=== PATIENT | female | born 1975 | race Caucasian/White ===

== ENCOUNTER → 2017-04-11 | Outpatient (CLI) | payer OTHER ==
[2015-02-01 12:48] VITALS: BP 120/70
[~2017-04-11] MED LIST: HYDR-2758 PO; MELO15TA23 PO; MOME13HF IH; PROAIR HFA8.5 GM IH; SUMA50TA4 PO; TIZA4TAB PO
--- NOTE | 2017-04-11 16:40 | KCIC ---
Two-view calcaneus HISTORY: Heel pain for 2 months. COMPARISON: None FINDINGS: Small plantar calcaneal spur. No evidence of an acute fracture. Visualized joints appear grossly intact IMPRESSION: Small plantar calcaneal spur. Electronically signed by: Talib Louis MD (04/11/2017 4:36 PM)
== END | disposition home or self-care (01) ==
LOC: KCIC 15:56
PROVIDERS: ATTEND Family Medicine
DX: M77.32 Calcaneal spur, left foot (principal)
CPT/HCPCS: 73650

== ENCOUNTER → 2017-10-02 | Outpatient (CLI) | payer OTHER ==
[2015-02-01 12:48] VITALS: BP 120/70
--- NOTE | 2017-10-02 14:08 | KCIC ---
Indication: Neck pain. Time of exam 12:15 PM Multiple views of the cervical spine were obtained. Curvature is normal. There is minimal anterolisthesis of C4 on C5. The disc spaces are well-maintained. The prevertebral tissues are normal. The odontoid is intact. No fractures are seen. IMPRESSION: Minimal anterolisthesis of C4 on C5. The study is otherwise unremarkable. Electronically signed by: Bryan Em MD (10/02/2017 2:05 PM) [id number]
== END | disposition home or self-care (01) ==
LOC: KCIC 11:51
PROVIDERS: ATTEND Internal Medicine
DX: M54.2 Cervicalgia (principal)
CPT/HCPCS: 72050

== ENCOUNTER → 2018-02-14 | Outpatient (CLI) | payer OTHER | END | disposition home or self-care (01) | LOC: KCIC 12:21 | DX: M25.562 Pain in left knee (principal); Z91.81 History of falling | CPT/HCPCS: 73560 ==

== ENCOUNTER → 2018-03-06 | Outpatient (CLI) | payer OTHER | END | disposition home or self-care (01) | LOC: KCIC US 12:34 | DX: E04.1 Nontoxic single thyroid nodule (principal) | CPT/HCPCS: 76536 ==

== ENCOUNTER → 2018-04-06 | Outpatient (CLI) | payer OTHER | END | disposition home or self-care (01) | LOC: KCIC 12:20 | DX: M54.5 Low back pain (principal); M79.604 Pain in right leg; M79.605 Pain in left leg; G89.29 Other chronic pain | CPT/HCPCS: 72110 ==

== ENCOUNTER 2018-05-28 18:38 | Emergency (ER) | payer OTHER ==
[2018-05-28] MEDS: IV NORMAL SALINE 1000ML BAG 1,000 ML IV (19:36)
[2018-05-28] MEDS: PROCHLORPERAZINE 10 MG/2 ML VIAL. IV (19:37)
[2018-05-28] MEDS: KETOROLAC 30 MG/ML INJ. IV (19:38)
[2018-05-28] MEDS: diphenhydrAMINE 50 MG/ML VIAL IVP (19:44)
[2018-05-28] MEDS ORDERED: MORPHINE SULFATE 4 MG/ML DISP.SYRIN. IV (20:30)
== END 2018-05-28 21:13 | disposition home or self-care (01) ==
LOC: ER 18:38
DX: G43.909 Migraine, unspecified, not intractable, without status migrainosus (principal); J45.909 Unspecified asthma, uncomplicated; G89.29 Other chronic pain; F17.210 Nicotine dependence, cigarettes, uncomplicated; Z88.0 Allergy status to penicillin
CPT/HCPCS: 96361; 96374; 96375; 99284; J0780; J1200; J1885; J7030

== ENCOUNTER → 2019-03-21 | Outpatient (CLI) | payer OTHER ==
[2018-05-28 21:09] VITALS: BP 111/65
[~2019-03-21] MED LIST changes: +ALBU2.5V8 IH; -HYDR-2758 PO; +HYDR-2761 PO; -PROAIR HFA8.5 GM IH
--- NOTE | 2019-03-21 16:18 | KCIC ---
THYROID ULTRASOUND History: Thyroid nodule Comparison: March 06, 2018 Findings: Multiple sonographic images of the thyroid gland are submitted. Right lobe measured 4.7 x 1.5 x 1.7 cm. Left lobe measured 4.2 x 1.3 x 1.3 cm. There is again solid heterogeneous nodule with internal vascularity of the inferior right gland about 1.1 x 0.8 x 0.7 cm overall similar (previously 1 x 0.6 x 1 cm). There is a hypoechoic small avascular lesion likely solid nodule of the inferior left gland about 0.3 x 0.3 x 0.3 cm overall unchanged in size. Isthmus measured 0.3 cm in thickness. There is heterogeneity of the thyroid parenchyma bilaterally. Impression: 1. There are stable bilateral thyroid nodules, dominant nodule of the inferior right gland. Electronically signed by: Mino Sharma MD (03/21/2019 4:16 PM) [facility]
== END | disposition home or self-care (01) ==
LOC: KCIC US 14:30
PROVIDERS: ATTEND Internal Medicine Endocrinology, Diabetes & Metabolism
DX: E04.2 Nontoxic multinodular goiter (principal)
CPT/HCPCS: 76536

== ENCOUNTER → 2019-05-13 | Outpatient (CLI) | payer OTHER ==
[2018-05-28 21:09] VITALS: BP 111/65
--- NOTE | 2019-05-13 14:18 | KCIC ---
Indication: Chronic back pain and back pain TECHNIQUE: Multiple views of the cervical spine and multiple views of the lumbar spine COMPARISON: None FINDINGS: Cervical spine: Cervical spine is in normal anatomic alignment. Atlantoaxial joint or is preserved. No compression deformities. Facet joints are in normal anatomic alignment. No significant intervertebral disc space narrowing. Prevertebral soft tissues are within normal limits. Visualized lungs are clear. Lumbar spine: There are 5 lumbar type vertebral bodies. No compression deformities. Significant intervertebral disc space narrowing seen at L4-L5 and L5-S1 with endplate sclerosis. Facet joints are in normal anatomic alignment. No change in alignment on flexion and extension views. No significant facet arthropathy. SI joints are within normal limits. IUD noted. IMPRESSION: Degenerative disc disease at L4-L5 and L5-S1. Electronically signed by: Salomón Bustillo DO (05/13/2019 2:15 PM) [facility]
== END | disposition home or self-care (01) ==
LOC: KCIC 11:57
PROVIDERS: ATTEND Family Medicine
DX: M51.37 Other intervertebral disc degeneration, lumbosacral region (principal); M48.07 Spinal stenosis, lumbosacral region; G89.29 Other chronic pain
CPT/HCPCS: 72040; 72114

== ENCOUNTER → 2019-05-22 | Outpatient (CLI) | payer OTHER ==
[2018-05-28 21:09] VITALS: BP 111/65
--- NOTE | 2019-05-22 16:48 | KCIC ---
Bilateral digital screening mammograms: Reason for examination: Routine baseline screening. Interpretation was made with the benefit of CAD. The skin and nipples show no abnormalities. No abnormal axillary lymph nodes are seen. The breast parenchyma shows scattered fibroglandular density. (Breast density: Category B.) There are small nodular parenchymal densities at the 10:00 position 5 cm from the nipple and 6:00 position 3.5 cm from the nipple of the right breast and the 9:00 position 3 cm from the nipple of the left breast. Recommend further evaluation with ultrasound. There are no other dominant masses, suspicious calcifications or architectural distortions. Impression: Small nodular densities seen bilaterally. Recommend further evaluation with ultrasound. BI-RADS Category 0: Incomplete. Needs additional imaging evaluation. "Our facility is accredited by the [employer] Mammography Program." This patient's information has been entered into a reminder system for the patient to be notified with the results of her examination and a target date for the next mammogram. Electronically signed by: Isha Abdi MD (05/22/2019 4:45 PM) [id number]
== END | disposition home or self-care (01) ==
LOC: KCIC MAMMO 09:56
PROVIDERS: ATTEND Family Medicine
DX: Z12.31 Encounter for screening mammogram for malignant neoplasm of breast (principal); N64.89 Other specified disorders of breast
CPT/HCPCS: 77067

== ENCOUNTER → 2019-05-31 | Outpatient (CLI) | payer OTHER ==
[2018-05-28 21:09] VITALS: BP 111/65
[~2019-05-31] MED LIST changes: -TIZA4TAB PO; +TIZA4TAB2 PO
--- NOTE | 2019-05-31 11:24 | KCIC ---
Bilateral breast ultrasound: Reason for examination: Parenchymal densities bilaterally on screening mammogram. Comparison is made to mammographic exam dated 05/22/2019. Ultrasound examination was performed in the areas of mammographic concern and at the axilla. In the right breast, there are no focal nodules but there are some very minimal fibrocystic changes. No abnormal appearing lymph nodes are seen in the axilla. In the left breast at the 9:30 position 3 cm from the nipple, there is a small nodule with lobulated and irregular margination which measures 7.9 mm in greatest dimension. Further evaluation with ultrasound-guided biopsy is recommended. No other cystic or solid nodules are seen. No abnormal appearing lymph nodes are seen axilla. IMPRESSION: 7.9 mm nodule at the 9:30 position 3 cm from the nipple in the left breast. Recommend further evaluation with ultrasound-guided biopsy. BI-RADS Category 4: Suspicious. These findings have been discussed with the patient and a nurse, Ferdi, in the office of the nurse practitioner, Elvira Dalton, was notified about these findings at 11:20 AM on 05/31/2019. "Our facility is accredited by the [employer] Mammography Program." Electronically signed by: Isha Abdi MD (05/31/2019 11:21 AM) [id number]
== END | disposition home or self-care (01) ==
LOC: KCIC US 09:55
PROVIDERS: ATTEND Nurse Practitioner Family
DX: N63.22 Unspecified lump in the left breast, upper inner quadrant (principal)
CPT/HCPCS: 76641

== ENCOUNTER → 2019-06-26 | Outpatient (CLI) | payer OTHER ==
[2018-05-28 21:09] VITALS: BP 111/65
--- NOTE | 2019-06-26 10:39 | RAD ---
Examination: US GUID NDL PLACE/ASPI/BX, DIGITAL DIAGNOSTIC LT History: Left breast mass biopsy Comparison/Correlation: None Findings: Risks and benefits of ultrasound-guided core biopsy were discussed with patient and informed consent was obtained. Preliminary ultrasound imaging was performed to localize the lesion of interest. Medial approach was utilized. Cleansing with alcohol based solution was performed. Sterile drape was placed. Sterile probe cover and sterile gel were utilized. A partially 5 cc 1 percent lidocaine was administered. Small scalpel incision was made. An introducer was placed. A 12-gauge core biopsy needle was placed via the introducer. A total of 6 passes were made. Most of the passes were made with the bevel open. A single pass was made with the bevel closed. Specimens were placed in a formalin jar. Biopsy clip marker was placed via the introducer the conclusion of the exam. MLO and CC images of the left breast were obtained after the ultrasound-guided biopsy. Clip marker is noted along the medial margin of the mass of interest. The patient did report mild chest pain at the conclusion of the biopsy but reportedly felt better after the mammographic exam was performed. No immediate complications noted. Impression: Successful ultrasound-guided biopsy of the left breast mass. Electronically signed by: Teofilo Romero MD (06/26/2019 10:36 AM) [facility]
--- NOTE | 2019-06-28 08:45 | PATHOLOGY ---
[facility] Accession Number: [id number] . 01 Material submitted: . breast - LEFT BREAST MASS 9:30 3CMFN 0.8CM. Modifiers: left . 01 Clinical history: . Left breast mass, 930, 3 cm from nipple, 0.8 cm . 02 Diagnosis: Breast tissue, left breast mass at 9:30 needle biopsies: - Papillary lesion with focal sclerosing adenosis. See comment. - Stromal fibrosis, periductal sclerosis, duct ectasia, and chronic inflammation, focal. . (JPM:mml; 06/27/2019) [facility]/06/28/2019 . 02 Comment: Sections of the left breast mass at 9:30 needle biopsy reveal a papillary lesion with focal sclerosing adenosis. The papillary lesion shows a few calcifications. The remaining breast tissue shows focal stromal fibrosis, periductal sclerosis, duct ectasia, and focal chronic inflammation. We favor a diagnosis of intraductal papilloma with sclerosing adenosis. As this represents a needle biopsy of a larger lesion, we cannot be certain that the changes are uniform throughout the lesion. Correlate clinically. . (JPM:mml; 06/27/2019) . 02 Electronically signed: . Raul Olivarez MD, Pathologist NPI- [id number] . 01 Gross description: . The specimen is received in formalin, labeled "Zita Ramirez, left breast mass, 9:30, 3 cm from nipple", are four fibrofatty cores measuring 1.1 x 0.5 x 0.2 cm in aggregate. The specimen is entirely submitted in A1-A3. Specimen excised at: 0900 on 06/26/19, placed in formalin at: 0905 on 06/26/19, formalin exposure: Approximately 13 hours and 35 minutes. (SWS; 06/26/2019) SHS/SHS . 02 Pathologist provided ICD-10: N60.22, N60.32, N60.42, N61.0 . 02 CPT . 028202 Specimen Comment: A courtesy copy of this report has been sent to Specimen Comment: [phone], , . Specimen Comment: Report sent to , and Performed at: 01 [facility] [address] [facility] [address], [place] [id number] MD Vasile Kelly MD Phone: [phone] Performed at: 02 [facility] [address] [place] [id number] MD Raul Olivarez MD Phone: [phone]
== END ==
LOC: US 08:06
PROVIDERS: ATTEND Surgery
DX: N60.22 Fibroadenosis of left breast (principal); N60.32 Fibrosclerosis of left breast
CPT/HCPCS: 19083; 77065; 88305; C1713; 19081; 76942

== ENCOUNTER → 2020-01-08 | Outpatient (CLI) | payer OTHER ==
[2018-05-28 21:09] VITALS: BP 111/65
--- NOTE | 2020-01-09 17:21 | RAD ---
Examination: DIGITAL DIAGNOSTIC LT, BREAST LEFT History: Left breast papilloma. Six-month biopsy follow-up. Comparison/Correlation: 05/22/2019 mammographic exam, bilateral breast ultrasound 05/31/2019 TECHNIQUE: Full-field digital diagnostic mammographic examination was performed. Computer aided detection software was utilized. BREAST PARENCHYMAL DENSITY: B-scattered fibroglandular densities are present. FINDINGS: Biopsy clip marker is present in the left retroareolar region anteriorly. No mass, suspicious calcifications, or suspicious distortion in the interval. Ultrasound imaging of the left breast is unremarkable with no suspicious mass identified at the 9:30 region. There is severe lesion which may correspond with the finding on prior ultrasound exam and measures 0.5 cm x 0.8 cm x 0.4 cm tall. No flow. No suspicious finding. IMPRESSION: Stable. RECOMMENDATION: BI-RADS Category 3-probably benign. Six-month follow-up mammographic examination at the time of annual evaluation is recommended. Ultrasound may be needed at that time. PQRS compliance statement - Patient information was entered into a reminder system with a target due date for the next mammogram. "Our facility is accreditied by the [employer] Mammography Program." Electronically signed by: Teofilo Romero MD (01/09/2020 5:17 PM) [email or web address]
== END | disposition home or self-care (01) ==
LOC: MAMMO 14:24
PROVIDERS: ATTEND Family Medicine
DX: D24.2 Benign neoplasm of left breast (principal)
CPT/HCPCS: 76641; 77065

== ENCOUNTER → 2020-07-22 | Outpatient (CLI) | payer OTHER ==
[2018-05-28 21:09] VITALS: BP 111/65
--- NOTE | 2020-07-22 10:51 | KCIC ---
Bilateral diagnostic digital mammograms with 3-D tomosynthesis: Reason for examination: Left breast papilloma. 12 month biopsy follow-up. Comparison is made to previous studies dated back to 05/22/2019. Bilateral mammograms in CC and oblique projections were obtained with 2-D imaging and 3-D tomosynthesis imaging on a Siemens Inspiration unit and reviewed on the workstation. Interpretation was made with the benefit of CAD. The skin and nipples show no abnormalities. No abnormal axillary lymph nodes are seen. The breast parenchyma shows scattered fatty and fibroglandular density. (Breast density: Category B.) There continues to be some nodularity in the anterior 9:30 position with adjacent biopsy clip which is stable. There is however a new nodular parenchymal density in the right breast at approximately the 5:00 position 6 cm from the nipple measuring 5 mm in size. Further evaluation with ultrasound follow. There are no other new dominant masses, suspicious calcifications or architectural distortion. Impression: Continued presence of some nodular parenchymal density in the 9:30 position of the left breast anteriorly with adjacent biopsy clip. New 5 mm nodule at the 5:00 position of the right breast. Ultrasound to follow. BI-RADS Category 0: Incomplete. Needs additional imaging evaluation. Bilateral breast ultrasound: Ultrasound examination was performed bilaterally in the areas of mammographic concern and at the axilla. In the right breast at the 5:00 position 6 cm from the nipple, there is a small 3.5 mm hypoechoic fibrocystic type nodule in parallel orientation. No other cystic or solid lesions are seen. There is some ductal ectasia in the retroareolar position. No abnormal appearing lymph nodes are seen in the right axilla. In the left breast at the 9:30 position 3 cm from the nipple, there continues to be a hypoechoic 8.6 mm nodule corresponding to the previous site of biopsy which is stable. There is also some ductal ectasia in the retroareolar position. No abnormal appearing lymph nodes are seen in the left axilla. IMPRESSION: Small 3.5 mm hypoechoic fibrocystic type nodule at the 5:00 position of the right breast. Recommend 6 month follow-up with ultrasound. Stable 8.6 mm nodule in the 9:30 position of the left breast corresponding to site of previous biopsy. BI-RADS Category 3: Probably benign. "Our facility is accredited by the [employer] Mammography [employer]." This patient's information has been entered into a reminder system for the patient to be notified with the results of her examination and a target date for the next mammogram. Electronically signed by: Isha Abdi MD (07/22/2020 10:48 AM) [email or web address]
== END | disposition home or self-care (01) ==
LOC: KCIC MAMMO 08:57
PROVIDERS: ATTEND Surgery
DX: R92.2 Inconclusive mammogram (principal); N63.22 Unspecified lump in the left breast, upper inner quadrant; N63.14 Unspecified lump in the right breast, lower inner quadrant
CPT/HCPCS: 76641; 77066; G0279; 77062

== ENCOUNTER → 2020-08-13 | Outpatient (CLI) | payer OTHER ==
[2018-05-28 21:09] VITALS: BP 111/65
[~2020-08-13] MED LIST changes: +ACET500T68 PO; +BUDE10.22 IH; +CHOL500050 PO; +GABA300C18 PO; +HYDR-3164 PO; +LURA40TA PO; +MONT10TA7 PO; +TOPI100T8 PO
== END ==
LOC: LAB 15:15
PROVIDERS: ATTEND Surgery
DX: Z01.812 Encounter for preprocedural laboratory examination (principal); Z20.828 Contact with and (suspected) exposure to other viral communicable diseases; N63.0 Unspecified lump in unspecified breast
CPT/HCPCS: U0003-CS

== ENCOUNTER 2020-08-17 06:43 | Day surgery (SDC) | payer OTHER ==
[~2020-08-17] VITALS: Ht 162.6 cm; Wt 66.0 kg
[~2020-08-17 06:43] MED LIST changes: -HYDR-3164 PO
[2020-08-17] MEDS ORDERED: fentaNYL PF VIAL 100 MCG/2 ML VIAL IV PRN ×2 (07:00)
[2020-08-17] MEDS ORDERED: PROCHLORPERAZINE 10 MG/2 ML VIAL. IV PRN (07:00)
[2020-08-17] MEDS ORDERED: IV RINGERS,LACTATED 1000ML 1,000 ML IV SCH (07:00)
[2020-08-17] MEDS ORDERED: LIDOCAINE 1% PF 2 ML VIAL. ID PRN (07:00)
[2020-08-17] MEDS ORDERED: HYDROmorphone 2 MG/ML VIAL IV PRN (07:00)
[2020-08-17] MEDS ORDERED: ONDANSETRON PF 4 MG/2 ML VIAL. IV PRN (07:00)
[2020-08-17] MEDS ORDERED: MORPHINE SULFATE 2 MG/ML VIAL. IV PRN (07:00)
[2020-08-17] MEDS ORDERED: LIDOCAINE 1%/EPI 1:100,000 20 ML VIAL. ONE (07:53)
[2020-08-17] MEDS ORDERED: DEXAMETHASONE SOD PHOS 4 MG/ML VIAL ONE (08:24)
[2020-08-17] MEDS ORDERED: PROPOFOL 10 MG/ML (20ML) VIAL. IV ONE (08:25)
[2020-08-17] MEDS ORDERED: LIDOCAINE 2% PF 5 ML VIAL. ONE (08:25)
[2020-08-17] MEDS ORDERED: fentaNYL PF VIAL 100 MCG/2 ML VIAL ONE (08:25)
[2020-08-17] MEDS ORDERED: ONDANSETRON PF 4 MG/2 ML VIAL. ONE (08:25)
[2020-08-17] MEDS ORDERED: BUPIVACAINE-EPI 0.5%-1:200000 MPF 30 ML VIAL. INJ ONE (09:30)
[2020-08-17] MEDS ORDERED: MIDAZOLAM HCL/PF 2 MG/2 ML VIAL. ONE (10:15)
--- NOTE | 2020-08-17 10:32 | RAD ---
EXAMINATION: DIGITAL DIAGNOSTIC LT, US GUID NDL PLACE/ASPI/BX, 08/17/2020 10:00 AM CLINICAL INDICATION: Wire localization left breast mass COMPARISON: Left breast mammogram and ultrasound 07/22/2020 FINDINGS/TECHNIQUE: The risks and benefits of the procedure were explained to the patient and written informed consent was obtained. A timeout was performed. Preprocedural ultrasound revealed the 8 mm hypoechoic lesion at 11:00, 3 cm from the nipple in the left breast. The biopsy clip could be seen in the lesion. On prior exams, the lesion was labeled at 9:30, which may be due to differences in patient positioning during prior ultrasounds. Location was confirmed by repeat mammogram with a marker overlying the ultrasound abnormality at 11:00. The skin overlying the patient's left breast mass was marked with a pen and then sterilely prepped and draped. 1% lidocaine was used for local anesthesia. A small skin indira was made with a scalpel. A 10 cm wire localization needle was then advanced into the mass under ultrasound guidance and wires deployed 1 cm beyond the mass. The needle was removed over the wire. The wire was secured to the skin and the patient was sent for post placement mammogram. Postplacement mammogram demonstrates that the tip of the wire is actually at the distal edge of the mass. The thickened portion of the wire ends approximately 6 mm superficial to the mass. The wire is positioned along the posterior edge of the mass, with the anterior edge of the mass 5 mm anterior to the wire. The cyrus of the wire is oriented posteriorly. The clip is located along the anterior distal edge of the mass. IMPRESSION: Technically successful ultrasound-guided wire localization of left breast mass with appropriate position of wire. Positioning was discussed by Dr. Debra Farrell at 10:15 AM on 08/17/2020. Electronically signed by: Angela Richardson MD (08/17/2020 10:29 AM) [email or web address]
[2020-08-17] MEDS ORDERED: KETOROLAC 30 MG/ML VIAL. ONE (10:59)
[2020-08-17] MEDS ORDERED: SEVOFLURANE 31 TO 60 MINUTES. IH ONE (10:59)
--- NOTE | 2020-08-17 12:10 | DISCH ---
DISCHARGE INSTRUCTIONS Condition on Discharge Condition on Discharge: Stable Activity After Discharge Activity Instructions for Disc: Activity as tolerated Diet after Discharge Diet after Discharge: Regular Wound Incision Care Wound/Incision Care: Other, see below (keep dressing clean and dry X 72 hours, may then remove and shower) Follow-Up Follow up with: Dr Hsieh in 2 weeks, call for appointment [phone] CHUCK HSIEH MD Aug 17, 2020 12:10
[2020-08-17] MEDS ORDERED: HYDR-3164 PO (12:14)
--- NOTE | 2020-08-17 12:16 | PDOC4 ---
Operative Note Operative Note Operative Note: Preoperative Diagnosis: Left breast papilloma Postoperative Diagnosis: Same Procedure: Needle localization left breast biopsy Surgeon: Storm Anesthesia: General EBL: 20 mL Specimen: Left breast specimen to pathology, additional anterior margin Drains: None Complications: None Indication: The patient is a 45-year-old female who had a prior core needle biopsy of her left breast indicating a suspected papilloma. I discussed with her various options including a wider surgical excision versus close observation. During our discussion she seems to prefer full excision to allow for definitive diagnosis. The risks of surgery were discussed which include bleeding, infection, pain, scar tissue, anesthetic risk, potential need for additional surgery procedure. She understands and would like to proceed. Description: The patient was taken initially to radiology where she underwent wire localization of the left breast lesion. She was then taken to the operating room and placed supine in the operating table. General anesthesia was performed. The left breast was prepped with ChloraPrep and draped in a standard surgical manner. A curved incision was made extending from the 1 to 3 o'clock position of the periareolar skin. Sharp dissection was used in the breast parenchyma. The wire was identified and delivered into the wound. With sharp dissection we followed the trajectory of the wire to its termination. A generous portion of the breast tissue was excised around the wire and its distal tip. The specimen and wire were then fully excised and sent to radiology. Specimen radiographs did not clearly identify the clip to be present. An additional rim of anterior tissue was then also excised. Radiographs again did not clearly identify the clip in the specimen. The C-arm was then brought into the operating room and the left breast was evaluated. We were unable to see any metallic foreign body or clip of the left breast using the C arm. Given the absence of the clip using fluoro, we elected to conclude the procedure. Hemostasis was readily achieved with cautery. The subcutaneous tissue was closed with interrupted 3-0 Vicryl and skin approximated with 4-0 Monocryl. The wound was infiltrated with half percent Marcaine with epinephrine. Steri-Strips and a sterile dressing were then applied. The patient tolerated the procedure well and was sent to the recovery room in stable condition. At the end of the case all counts were correct. CHUCK HSIEH MD Aug 17, 2020 12:16
[2020-08-17] MEDS ORDERED: HYDROcodone/APAP 5/325MG 1 TAB TABLET ONE (12:37)
[2020-08-17 12:45] VITALS: BP 98/69
[2020-08-17] MEDS ORDERED: HYDROcodone/APAP 5/325MG 1 TAB TABLET PO ONE (12:45)
--- NOTE | 2020-08-17 16:14 | RAD ---
EXAM: TISSUE SPECIMEN MAMMOGRAM 08/17/2020 12:00 AM CLINICAL INDICATION: 45-year-old woman undergoing excision of left breast papilloma. OR specimen. COMPARISON:Left breast mammogram 06/26/2019 TECHNIQUE:Mammogram of OR specimen was obtained FINDINGS:The first specimen contains the entire distal tip of the wire. The mass is difficult to visualize. The biopsy clip is not definitively seen, possibly superimposed on the wire. There appears to be adequate size of tissue sample that the clip and the mass should be within the specimen. This was discussed with Dr. Inman. Additional tissue was removed. The second specimen also does not definitively contain the biopsy clip. IMPRESSION:OR specimen mammogram containing the entire distal tip of the wire. The biopsy clip is not definitively seen, possibly superimposed on the wire. This was discussed with Dr. Inman intraoperatively, as above. Electronically signed by: Angela Richardson MD (08/17/2020 4:12 PM) [email or web address]
--- NOTE | 2020-08-20 09:11 | PATHOLOGY ---
[facility] Accession Number: [id number] . 01 Material submitted: . PART A: breast - LEFT BREAST NODULE. Modifiers: left PART B: breast - LEFT BREAST ANTERIOR MARGIN. Modifiers: left, anterior . 01 Clinical history: . LEFT BREAST NODULE . 02 Diagnosis: A. Breast tissue, left breast wire-localized excisional biopsy: Fibrocystic changes with the following components: - Stromal fibrosis. - Duct ectasia. - Cystic change. - Apocrine metaplasia. - See comment. . B. Breast tissue, left breast anterior margin: Fibrocystic changes with the following components: - Stromal fibrosis. - Duct ectasia. - Cystic change. - Apocrine metaplasia, focal. (JPM:meche; 08/19/2020) S 08/19/2020 1010 Local . 02 Comment: Sections of the wire-localized left breast excisional biopsy reveal breast tissue with a prominent fatty component. The entire specimen is submitted for histologic evaluation. There are fibrocystic changes comprised of scattered foci of stromal fibrosis, duct ectasia, cystic change, and apocrine metaplasia. In section A5, there is a small cluster of crowded small tubules with little accompanying fibrous stroma, which are lined by bland cuboidal epithelial cells. Immunoperoxidase stains for myoepithelial cells are obtained and yield the following results: . P63 (A5): Presence of myoepithelial cells within crowded tubules Smooth muscle myosin heavy chain (A5): Presence of myoepithelial cells within crowded tubules. . The findings are compatible with a small focus of benign breast acini. I do not identify previous biopsy site changes in the biopsy. No papillary lesion is identified. . Sections of the left breast anterior margin also reveal breast tissue having a prominent fatty component. There are fibrocystic changes once again comprised of scattered foci of stromal fibrosis, duct ectasia, cystic change, and focal apocrine metaplasia. Previous biopsy site changes are not identified. There is no papillary lesion identified. (JPM:meche; 08/19/2020) . Special stains performed: Immunoperoxidase stains for p63, smooth muscle myosin heavy chain on A5. . 02 Electronically signed: . Raul Olivarez MD, Pathologist NPI- [id number] . 01 Gross description: . A. The specimen is received in formalin, labeled "Zita Dority, left breast nodule". Received is a 7 g unoriented segment of bright yellow fibroadipose tissue, with a localization wire present, measuring 4.5 x 3.0 x 1.0 cm in greatest dimensions. The surgical margin is inked. The specimen is sectioned into 13 pieces to reveal bright yellow, lobulated cut surfaces throughout. The end of the localization wire was identified in slice 5. No distinct nodules or lesions are noted grossly. The specimen is submitted entirely in cassettes A1 through A9. The cold ischemic time and time in formalin are not provided. The time out of formalin is 6:50 p.m. on 08/18/2020. . B. The specimen is received in formalin, labeled "Zita Dority, left breast anterior margin". Received is a 4 g unoriented segment of bright yellow, lobulated to white, fibrous tissue measuring 3.8 x 3.3 x 0.6 cm in greatest dimensions. The surgical margin is inked. The specimen is sectioned into 9 slices to reveal bright yellow, lobulated to white, fibrous cut surfaces throughout. No distinct nodules or lesions are noted grossly. The specimen is submitted entirely in cassettes B1 through B8, with the sections in cassettes B2 through B6 additionally bisected. The cold ischemic time and time in formalin are not provided. The time out of formalin is 6:50 p.m. on 08/18/2020. (CAA; 08/17/2020) QAC/QAC 08/17/2020 1851 Local . 02 Pathologist provided ICD-10: N60.12, N60.32, N60.42, N60.82 . 02 CPT . 692049, 104124, V64712, X64218 Specimen Comment: A courtesy copy of this report has been sent to [phone], [phone] Specimen Comment: [phone] Specimen Comment: Report sent to / DR NYE Performed at: 01 [facility] [address] [facility] [address], [place], [place] [id number] MD Vasile Kelly MD Phone: [phone] Performed at: 02 [facility] [address], [place] [id number] MD Raul Olivarez MD Phone: [phone]
== END 2020-08-17 13:23 | disposition home or self-care (01) ==
LOC: SURG 06:43
PROVIDERS: ATTEND Surgery
DX: D24.2 Benign neoplasm of left breast (principal); N60.12 Diffuse cystic mastopathy of left breast; N60.42 Mammary duct ectasia of left breast; N60.82 Other benign mammary dysplasias of left breast; F17.210 Nicotine dependence, cigarettes, uncomplicated; Z88.0 Allergy status to penicillin; Z79.899 Other long term (current) drug therapy
CPT/HCPCS: 19083; 19281; 76000; 76098; 77065; 81025; A7015; J1100; J1885; J1956; J2250; J2405; J2704; J3010; 76942; J3490

== ENCOUNTER → 2020-12-11 | Outpatient (CLI) | payer OTHER ==
[~2020-12-11] MED LIST changes: +HYDR-3164 PO
--- NOTE | 2020-12-11 14:41 | KCIC ---
XR LUMBAR SPINE 4+V DATE: 12/11/2020 11:36 AM INDICATION: Lumbar pain a couple of weeks, denies radiculopathy COMPARISON: None. FINDINGS: Five non-rib bearing lumbar-type vertebral bodies are present. Bones/Alignment: No evidence of acute compression fracture. There is no listhesis. Joints: Moderate degenerative disc disease at L4-5, mild at L5-S1. Miscellaneous: IUD overlying the pelvis. IMPRESSION: No evidence of acute compression fracture. Degenerative disc disease, worst and moderate at L4-5. Electronically signed by: Mino Coronel MD (12/11/2020 2:39 PM) [id number]
== END ==
LOC: KCIC 11:33
PROVIDERS: ATTEND Nurse Practitioner Family
DX: M51.37 Other intervertebral disc degeneration, lumbosacral region (principal); Z97.5 Presence of (intrauterine) contraceptive device
CPT/HCPCS: 72110

== ENCOUNTER → 2021-01-25 | Outpatient (CLI) | payer OTHER ==
--- NOTE | 2021-01-26 07:22 | KCIC ---
XR KNEE _3 VIEWS_LT 01/25/2021 2:01 PM INDICATION: Left knee pain status post fall COMPARISON: None available. TECHNIQUE: 3 views the left knee are provided. FINDINGS/ IMPRESSION: No significant knee joint effusion. There is no acute fracture or dislocation. Joint spaces are maint ained. Bone mineralization is within normal limits. Regional soft tissues are within normal limits. T here is no soft tissue gas or osseous erosion. No radiopaque foreign body. Electronically signed by: Disha Jacobs MD (01/26/2021 7:20 AM) [id number]
== END ==
LOC: KCIC 13:58
PROVIDERS: ATTEND Nurse Practitioner Family
DX: M25.562 Pain in left knee (principal)
CPT/HCPCS: 73562

== ENCOUNTER → 2021-03-08 | Outpatient (CLI) | payer OTHER ==
--- NOTE | 2021-03-08 12:22 | KCIC ---
XR RT WRIST 3VIEWS 03/08/2021 11:02 AM INDICATION: Acute wrist pain along the ulnar aspect COMPARISON: None available. TECHNIQUE: 3 views of the right wrist are provided. FINDINGS/ IMPRESSION: There is no acute fracture or dislocation. Joint spaces are maintained. Bone mineralization is within normal limits. Regional soft tissues are within normal limits. There is no soft tissue gas or osseou s erosion. No radiopaque foreign body. Electronically signed by: Disha Jacobs MD (03/08/2021 12:20 PM) [id number]
== END ==
LOC: KCIC 10:57
PROVIDERS: ATTEND Nurse Practitioner Family
DX: R22.31 Localized swelling, mass and lump, right upper limb (principal)
CPT/HCPCS: 73110